=== PATIENT | female | born 1950 | race Caucasian/White ===

== ENCOUNTER 2017-11-20 17:01 | Emergency (ER) | payer MEDICARE ==
[~2017-11-20 17:01] MED LIST: ALBUTEROL2.5 MG/31 IN; BACLOFEN10 MG OR; DOXYCYCL HYC100 MG OR; FLONASE NASAL50 MCG; HYDROXYZ HCL25 MG PO; HYZAAR1 TA1 OR; HYZAAR1 TA2 PO; LORTAB 5 OR; MEDDOSEPAK PO; METHADONE10 MG OR; METO50TA52 PO; MORPHINE SUL60 MG PO; TETRACYCLINE H500 MG OR; ZPAK PO
== END 2017-11-20 17:14 | disposition left against medical advice (07) ==
LOC: ED 17:01 → LWOBS 17:14
DX: Z91.19 Patient's noncompliance with other medical treatment and regimen (principal)

== ENCOUNTER 2017-11-24 00:19 | Emergency (ER) | payer MEDICARE ==
[~2017-11-24] VITALS: Ht 162.6 cm; Wt 58.4 kg
[2017-11-24] MEDS ORDERED: HYDRALAZINE50 MG PO (00:45)
[2017-11-24] MEDS ORDERED: COZAAR50 MG PO (00:45)
[2017-11-24 01:36] LABS: HEMATOCRIT 44.4 % (37.0-47.0); HEMOGLOBIN 15.3 g/dl (12.0-16.0); IMMATURE GRANULOCYTES 0.1 % (0.0-1.0); MEAN CELL VOLUME 88.8 fL CALC (80.0-100.0); MEAN CORPUSCULAR HGB 30.6 pG CALC (26.0-32.0); MEAN CORPUSCULAR HGB CONC 34.5 g/L CALC (32.0-36.0); NEUT# 5.86 thou/uL (2.00-7.15); RED CELL DISTRI WIDTH 13.1 % (11.5-15.5)
[2017-11-24 01:47] LABS: ALBUMIN 3.7 g/dL (3.2-5.0); ALKALINE PHOSPHATASE 55 u/l (38-126); ANION GAP 8 (6-22 (CALC)); BILIRUBIN, TOTAL 0.4 mg/dL (0.0-1.4); BUN 6 mg/dL (8-23); BUN/CREATININE RATIO 9 (12-20 (CALC)); CARBON DIOXIDE 31 mmol/l (22-30); CHLORIDE 109 mmol/l (95-108); CREATININE 0.7 mg/dL (0.5-1.0); GFR > 60 ML/MIN (>=60 (CALC)); GFR FOR AFR.AMER. > 60 ML/MIN (>=60 (CALC)); POTASSIUM 3.5 mmol/l (3.5-5.1); SGOT/AST 24 u/l (9-36); SGPT/ALT 26 u/l (11-66); SODIUM 144 mmol/l (137-146); TOTAL PROTEIN 6.5 g/dL (6.3-8.2)
[2017-11-24 02:44] VITALS: BP 150/73
== END 2017-11-24 02:54 | disposition home or self-care (01) ==
LOC: ED 00:19
PROVIDERS: Emergency Medicine
DX: I10 Essential (primary) hypertension (principal); J43.9 Emphysema, unspecified; I34.1 Nonrheumatic mitral (valve) prolapse; F17.210 Nicotine dependence, cigarettes, uncomplicated

== ENCOUNTER 2019-01-26 10:27 | Emergency (ER) | payer MEDICARE ==
[~2019-01-26] VITALS: Ht 162.6 cm; Wt 54.0 kg
[~2019-01-26 10:27] MED LIST changes: +COZAAR50 MG PO; +HYDRALAZINE50 MG PO
[2019-01-26 11:32] VITALS: BP 161/89
[2019-01-26] MEDS ORDERED: MONTELUKAST SOD10 MG PO (11:39)
[2019-01-26] MEDS ORDERED: HYDROCHLOROT25 MG PO (11:40)
[2019-01-26] MEDS ORDERED: ALBUTEROL0.63 MG/3 IN (11:41)
== END 2019-01-26 11:32 | disposition home or self-care (01) ==
LOC: ED 10:27
DX: G56.91 Unspecified mononeuropathy of right upper limb (principal); M25.531 Pain in right wrist; F17.210 Nicotine dependence, cigarettes, uncomplicated

== ENCOUNTER 2022-01-03 15:25 | Emergency (ER) | payer MEDICARE ==
[~2022-01-03] VITALS: Ht 162.6 cm; Wt 63.0 kg
[~2022-01-03 15:25] MED LIST changes: +ALBUTEROL0.63 MG/3 IN; +HYDROCHLOROT25 MG PO; +MONTELUKAST SOD10 MG PO
[2022-01-03 18:15] VITALS: BP 177/89
== END 2022-01-03 18:40 | disposition home or self-care (01) ==
LOC: ED 15:25
DX: F41.9 Anxiety disorder, unspecified (principal); I10 Essential (primary) hypertension; J43.9 Emphysema, unspecified; I34.1 Nonrheumatic mitral (valve) prolapse; F17.210 Nicotine dependence, cigarettes, uncomplicated; Z63.4 Disappearance and death of family member